=== PATIENT | female | born 1950 | race Caucasian/White ===

== ENCOUNTER 2019-02-25 12:48 | Outpatient (REF) | payer MEDICARE, BC, SELFPAY ==
[2019-02-25 20:18] LABS: ALT 37 U/L (12-78); AST 27 U/L (15-37); Albumin 4.2 g/dL (3.4-5.0); Alkaline Phosphatase 108 U/L (46-116); Anion Gap 11.4 mmol/L (3-11); BUN 13 mg/dL (7-18); Bilirubin, Total 0.6 mg/dL (0.2-1.0); CO2 26.6 mmol/L (21.0-32.0); CREATININE 0.62 mg/dL (0.55-1.02); Calcium 9.2 mg/dL (8.5-10.1); Chloride 101 mmol/L (98-107); Glucose 103 mg/dL (70-100); Potassium 4.2 mmol/L (3.5-5.1); Sodium 139 mmol/L (136-145); Total Protein 7.5 g/dL (6.4-8.2)
[2019-02-25 20:41] LABS: Cholesterol 256 mg/dL (50-200); HDL Cholesterol 108 mg/dL (40-60); LDL CHOLESTEROL 121 mg/dL (<100); Triglyceride 99 mg/dL (30-150)
[2019-02-26 06:13] LABS: Vitamin D 25 Total 31.1 ng/ml (30-100)
== END 2019-02-25 13:08 ==
LOC: NCHCN 12:48
PROVIDERS: PCP Nurse Practitioner; Visit Provider Nurse Practitioner
DX: E55.9 Vitamin D deficiency, unspecified (principal); E78.89 Other lipoprotein metabolism disorders; R73.09 Other abnormal glucose
CPT/HCPCS: 80053; 80061; 82306; 83721

== ENCOUNTER 2019-03-09 00:21 | Outpatient (CLI) | payer MEDICARE, BC, SELFPAY ==
--- NOTE | 2019-03-09 11:48 | DI.MAMMO_ITS ---
SYMPTOM/DIAGNOSIS: SCREENING, Z12.39 MAMMOGRAMS: Mammograms were interpreted according to the usual protocol including computer analysis with CAD system, tomosynthesis and C view imaging. Comparison is made with exams from [id number]. The breasts are composed of fatty density tissue, breast density, Category A. No suspicious masses or suspicious microcalcifications are seen. There has been no significant change. IMPRESSION: Category 1, negative mammogram. Yearly screening mammography is recommended. [facility] ASSESSMENT OF FINDINGS: Negative. Category 1. Patient will receive a letter notifying them of these results. BI-RAD category A. The breasts are almost entirely fatty.
== END 2019-03-09 00:41 ==
PROVIDERS: PCP Nurse Practitioner; Visit Provider Nurse Practitioner
DX: Z12.31 Encounter for screening mammogram for malignant neoplasm of breast (principal)
CPT/HCPCS: 77063; 77067

== ENCOUNTER 2021-12-19 00:25 | Outpatient (CLI) | payer MEDICARE, BC, SELFPAY ==
--- NOTE | 2021-12-19 | DI.MAMMO_ITS ---
Exam(s) MAMMO SCREENING EXAM: MAMMO SCREENING CLINICAL HISTORY: SCREENING, Z12.39 TECHNIQUE: Bilateral full field digital CC and MLO mammographic images were obtained with 3D tomosyn thesis and utilizing computer aided detection (CAD). COMPARISON: Available for comparison. FINDINGS: Masses/Architectural Distortion: None seen. Microcalcifications: No suspicious pleomorphic-type are seen. Skin Thickening/Nipple Retraction: None. IMPRESSION: 1. No significant interval change with no specific features of malignancy noted. 2. Unless there is more urgent need, screening mammography is recommended, as per [employer] guidelines. BI-RADS Category 1 - Negative Breast Density - Category B - Scattered areas of fibroglandular density Breast density category C or D implies that the patient has dense breast tissue. Dense breast tissue is very common and is not abnormal but dense breast tissue can make it harder to find cancer on a ma mmogram. Also, dense breast tissue may increase their breast cancer risk. This information about the result of the mammogram report was provided to the patient to raise their awareness. Use this report when you speak with the patient about their risks for breast cancer, which includes their family hist ory. At that time, you may recommend for more screening tests (Ultrasound or MRI) as they might be us eful based on their risk. A negative radiographic report should not delay biopsy if a dominant or clinically suspicious mass is present. Up to ten percent of cancers are not identified on mammography. A negative report may reinforce clinical impression. Adenosis and dense breasts may obscure an underlying neoplasm. False positive reports average 6 to 10%. Patient will receive a letter notifying them of these results.
== END 2021-12-19 00:45 ==
PROVIDERS: PCP Nurse Practitioner; Visit Provider Nurse Practitioner
DX: Z12.31 Encounter for screening mammogram for malignant neoplasm of breast (principal)
CPT/HCPCS: 77063; 77067

== ENCOUNTER 2023-10-01 13:07 | Emergency (ER) | payer MEDICARE, BC, SELFPAY ==
[2023-10-01 12:59] VITALS: BP 183/83; PULSE 76; RESP 18; TEMP 36.4; O2SAT 98
--- NOTE | 2023-10-01 13:30 | DI.RAD_ITS ---
Exam(s) XR LUMBAR SPINE COMPLETE EXAM: XR LUMBAR SPINE COMPLETE CLINICAL HISTORY: fall pain. TECHNIQUE: 2D digital imaging was performed. Five views. COMPARISON: DX DEXA BONE DENSITY WITH NEGRO from 09/20/2015 FINDINGS: BONES: No fracture or destructive lesion. Mild loss of height of the superior endplate of T12. Degen erative changes of the facet joints of the lower lumbar spine. Known slight degenerative spondylolis thesis at L4-5. DISKS: Intervertebral disc spaces are maintained. ALIGNMENT: Lumbar spinal alignment is within normal limits. SOFT TISSUE: Normal. IMPRESSION: Minimal T12 compression fracture, likely old. DATA REPOSITORY: RADIATION DOSE DELIVERED:
[2023-10-01] MEDS: oxyCODONE 5 mg/Acetaminophen 325 mg TAB 1 TAB PO (13:43)
[2023-10-01] MEDS: Lidocaine 5% Patch 2 PATCH TP (13:43)
--- NOTE | 2023-10-01 14:38 | ED.GENADUL_ITS ---
Discharge Plan Disposition Patient Disposition: Home Condition: Stable Discharge Details Clinical Impression: Contusion of hand, Back pain, Fall Primary Care Provider: Cori Diamond ED Provider: Desire Escalona Home Meds and New Rx's Prescriptions: New lidocaine [Lidoderm] 5 % adhesive patch,medicated 2 patch topical DAILY Qty: 30 0RF Rx Instructions: leave on most painful area for up to 12 hrs oxycodone-acetaminophen [Percocet] 5-325 mg tablet 1 tab PO TID PRNQty: 7 0RF cyclobenzaprine 5 mg tablet 5 mg PO QHS PRNQty: 7 0RF No Action cholecalciferol (vitamin D3) [Vitamin D3] 2,000 UNIT capsule 2,000 unit PO DAILY calcium carbonate-vitamin D3 [Caltrate with Vitamin D3] 1 EACH tablet 1 ea PO DAILY ibuprofen [Advil] 200 MG tablet 200 mg PO PRN Discharge Instructions Instructions: Contusion in Adults (ED), Back Pain (ED) Discharge Data Discharge Physician: Desire Escalona Medical Decision Making 73-year-old female presents for evaluation after mechanical fall at home. She does have lower back discomfort. At time my evaluation she is neurologically intact. Lidoderm patches were placed. She is given a dose of Percocet for pain. X-ray negative for acute fracture. Patient will be treated symptomatically. Patient has no saddle anesthesia, no loss of bowel or bladder control. Patient's history and physical exam are consistent with musculoskeletal back pain. There are no red flags for cauda equina syndrome or infection. No radicular symptoms. We will treat with muscle relaxants and pain control. Patient is to follow up closely with primary care or return to the ED for any worsening symptoms. HPI General Date/Time Provider Initiated Documentation: 10/01/23 13:21 . HPI Narrative: 73-year-old female presents for evaluation of back pain. Patient states that she got up in the middle the night because she had heartburn. She attempted to go get a Tums when she had a coughing fit and vomited. She then fell landing on her bottom. She has bruising to her hands bilaterally and pain in her lower back bilaterally. She has been able to urinate since the incident. No gross hematuria. She denies hitting her head or losing consciousness. Denies any cervical or thoracic pain. No chest pain or shortness of breath. No abdominal pain. No numbness or tingling in her extremities. No weakness in her 70s. She did take Tylenol Motrin at home without significant relief. She has a history of arthritis in her back. Related Data Home Medications Medication Instructions Recorded Confirmed ibuprofen 200 mg tablet (Advil) 200 mg PO PRN 04/25/15 10/01/23 calcium carbonate 600 mg-vitamin 1 ea PO DAILY 02/08/17 10/01/23 D3 20 mcg (800 unit) tablet (Caltrate with Vitamin D3) cholecalciferol (vitamin D3) 50 2,000 unit PO DAILY 02/08/17 10/01/23 mcg (2,000 unit) capsule (Vitamin D3) cyclobenzaprine 5 mg tablet 5 mg PO QHS PRN #7 tabs 10/01/23 lidocaine 5 % topical patch 2 patch topical DAILY #30 ea 10/01/23 (Lidoderm) oxycodone-acetaminophen 5 mg-325 1 tab PO TID PRN #7 tabs 10/01/23 mg tablet (Percocet) Previous Rx's Medication Instructions Recorded cyclobenzaprine 5 mg tablet 5 mg PO QHS PRN #7 tabs 10/01/23 lidocaine 5 % topical patch 2 patch topical DAILY #30 ea 10/01/23 (Lidoderm) oxycodone-acetaminophen 5 mg-325 1 tab PO TID PRN #7 tabs 10/01/23 mg tablet (Percocet) Allergies Allergy/AdvReac Type Severity Reaction Status Date / Time Penicillins Allergy Unknown Unverified 10/01/23 13:06 alendronate sodium AdvReac Severe Skin Rash Unverified 10/01/23 13:06 [From Fosamax] General Stated Complaint: Nk/Back Pain BETH: 4 Review of Systems Narrative: Remainder of review of systems otherwise negative separate as on the HPI x5. PFSH All Active Problems (Updated 10/01/23 @ 15:21 by Desire Escalona MD) Fall (Acute) Back pain (Acute) Contusion of hand (Acute) H/O melanoma excision (Chronic) H/O surgical procedure (Chronic) a. right THR 05/04/2015 b. left THR c. right wrist ORIF d. excision of melanoma e. colonoscopy History of arthroplasty of right hip (Acute 05/04/15) Osteoarthritis of right hip (Acute 05/04/15) Medical History Osteopenia pt reports previous DEXA scan dx. Takes Vit D and has adequate dietary Ca. 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 Surgical History Total replacement of hip (05/30/11) LEFT SIDE DR BENAVIDES Total replacement of hip (05/04/15) RIGHT SIDE DR BENAVIDES 05/04/15 Colonoscopy - IV Sedation (02/25/17) Social History Smoking/Tobacco Use Status: Never Smoking risk assessment performed?: Yes Alcohol Intake: current Alcohol Intake frequency: 0-2 drinks per day Alcohol type: wine Drug use: Occasionally Substance use type: marijuana Exam Narrative Exam Narrative: General: non-toxic, no respiratory distress, comfortable HEENT: normocephalic, atraumatic, lids and lashes normal, PERRL, EOMI, anicteric sclera, no conjunctival injection, moist oral mucosa Neck: No vertebral tenderness Card: regular rate and rhythm, S1S2, no murmurs, rubs, or gallops Lungs: good air entry, clear to auscultation bilaterally. no wheezes, rales, rhonchi, or retractions Abd: soft, non-tender, non-distended, normal bowel sounds, no rebound or guarding, no peritoneal signs Musculoskeletal: Bruising to hands bilaterally, no pain to palpation over metacarpals, able to fully range fingers and wrist, 2+ radial pulses bilaterally, pelvis stable, full range of motion of arms and legs, no tenderness to palpation. no clubbing, cyanosis, or edema Back exam: + Bilateral lumbar sacral paraspinal tenderness, no mid-line tenderness, normal strength & sensation, negative SLR's, DTR's 2+ bilaterally Neurologic: GCS 15, cranial 2 through 12 intact, speech normal, appropriate for age, strength normal Psych: alert and oriented Skin: As above, otherwise no petechiae, no lesions, warm and dry Course Vital Signs Vital signs: Vital Signs Temperature 36.4 C L 10/01/23 12:59 Pulse 76 10/01/23 12:59 Respiratory Rate 18 10/01/23 12:59 Blood Pressure 183/83 H 10/01/23 12:59 Pulse Oximetry 98 10/01/23 12:59 Temperature 36.4 C L 10/01/23 12:59 Temperature Source Skin 10/01/23 12:59 Pulse 76 10/01/23 12:59 Respiratory Rate 18 10/01/23 12:59 Respiratory Effort Normal 10/01/23 13:05 Blood Pressure 183/83 H 10/01/23 12:59 Blood Pressure Position Sitting 10/01/23 12:59 Pulse Oximetry 98 10/01/23 12:59 Oxygen Delivery Method Room Air 10/01/23 12:59 Oxygen Flow Rate 0 10/01/23 12:59 Pain Level 3 10/01/23 12:59 Comment Movement makes pain go to a 10 10/01/23 12:59
== END 2023-10-01 15:53 | disposition home or self-care (01) ==
PROVIDERS: Emergency Provider Emergency Medicine Emergency Medical Services; PCP Nurse Practitioner
DX: M54.50 Low back pain, unspecified (principal); S60.222A Contusion of left hand, initial encounter; S60.221A Contusion of right hand, initial encounter; W18.39XA Other fall on same level, initial encounter; Y93.01 Activity, walking, marching and hiking; Y92.018 Other place in single-family (private) house as the place of occurrence of the external cause
CPT/HCPCS: 99283; 72110

== ENCOUNTER → 2023-11-26 02:06 | Outpatient (CLI) | payer MEDICARE, BC, SELFPAY ==
--- NOTE | 2023-11-26 12:35 | DI.MAMMO_ITS ---
Exam(s) MAMMO SCREENING EXAM: MAMMO SCREENING CLINICAL HISTORY: SCREENING, Z12.39. TECHNIQUE: Bilateral full field digital CC and MLO mammographic images were obtained with 3D tomosyn thesis and utilizing computer aided detection (CAD). COMPARISON: Prior mammograms were reviewed. FINDINGS: There has been no significant change in the appearance and distribution of the fibroglandular tissue. There are no CAD designations. There are no new spiculated masses nor malignant appearing microcalcification groups. There is no significant architectural distortion nor skin thickening-retraction. IMPRESSION: No radiographic evidence of malignancy. BI-RADS Category 1 - Negative Breast Density - Category B - Scattered areas of fibroglandular density Breast density Category C or D implies that the patient has dense breast tissue. Dense breast tissue can make it harder to find cancer on a mammogram. Dense breast tissue is also associated with an incr eased risk of breast cancer. This information about the result of the mammogram report was provided to the patient to raise their awareness. Use this report when you speak with the patient about their risks for breast cancer, which includes their family history. At that time, you may recommend additional screening tests (Ultrasoun d or MRI) as these tests may add significant information. A negative radiographic report should not delay biopsy if a dominant or clinically suspicious mass is present. Up to ten percent of cancers are not identified on mammography. A negative report may reinforce clinical impression. Adenosis and dense breasts may obscure an underlying neoplasm. False positive reports average 6 to 10%. Patient will receive a letter notifying them of these results.
== END ==
PROVIDERS: PCP Nurse Practitioner Family; Visit Provider Nurse Practitioner Family
DX: Z12.31 Encounter for screening mammogram for malignant neoplasm of breast (principal)
CPT/HCPCS: 77063; 77067

== ENCOUNTER 2025-09-28 13:14 | Emergency (ER) | payer MEDICARE, BC, SELFPAY ==
[2025-09-28 13:16] VITALS: BP 171/77; PULSE 112; RESP 18; TEMP 37; O2SAT 95
--- NOTE | 2025-09-28 14:36 | DI.RAD_ITS ---
Exam(s) XR SACRUM COCCYX XR HIP RT COMPLETE AP PELVIS EXAM: XR HIP RT COMPLETE AP PELVIS CLINICAL HISTORY: fall; R hip pain. TECHNIQUE: 2D digital imaging was performed. Three views of the sacrum and coccyx. AP pelvis and lateral view of the right hip. COMPARISON: CR PELVIS AP from 08/15/2015 CR XR LUMBAR SPINE COMPLETE from 10/01/2023 CR XR SACRUM COCCYX from 09/28/2025 FINDINGS: BONES: There are fractures of the right superior and inferior pubic rami, acute versus subacute. There is mild displacement. There is no evidence of hip fracture. No sacral fracture is identified. There are bilateral hip prostheses which are unremarkable. No bony destructive lesion is seen. JOINTS: No dislocation present. Bilateral hip prostheses. The SI joints and pubic symphysis show mild degenerative changes. SOFT TISSUE: Normal. IMPRESSION: Mildly displaced fractures of the right superior and inferior pubic rami. No sacral fractures are visualized. DATA REPOSITORY: RADIATION DOSE DELIVERED:
--- NOTE | 2025-09-28 15:04 | W.ED.GENAD ---
Discharge Plan Disposition Patient Disposition: Home Condition: Stable Discharge Details Clinical Impression: Multiple closed stable fractures of ramus of right pubis Primary Care Provider: SYDNIE SHAH ED Provider: Noble Price Home Meds and New Rx's Prescriptions: Continued cholecalciferol (vitamin D3) [Vitamin D3] 2,000 UNIT capsule 2,000 unit PO DAILY calcium carbonate-vitamin D3 [Caltrate with Vitamin D3] 1 EACH tablet 1 ea PO DAILY ibuprofen [Advil] 200 MG tablet 200 mg PO PRN lidocaine [Lidoderm] 5 % adhesive patch,medicated 2 patch topical DAILY Qty: 30 0RF Rx Instructions: leave on most painful area for up to 12 hrs magnesium 250 mg tablet 250 mg PO QHS Discharge Instructions Instructions: Pelvic fracture Additional Instructions: You were seen in the emergency department for your right sided superior and inferior rami fractures of your pelvis, please use the walker at home for ambulation, I have ordered you home health services, evaluate your needs, please take 1000 mg of Tylenol every 8 hours, take 400 mg of ibuprofen every 6 hours, use the provided oxycodone for breakthrough pain until you can be seen by orthopedics, use a stool softener or laxative for any long-term opiate use. Ortho practice is aware of your images and will contact you for follow-up. Stand Alone Forms: Portal Information Referrals: SYDNIE SHAH, [employer]GRAM[employer]ER [Primary Care Provider, Medicine] Bob Davison MD [ [facility] STAFF PHYSICIAN, Orthopaedic Surgical] Discharge Data Discharge Date/Time-TO BE ENTERED AT DEPARTURE: 09/28/25 17:48 HPI General Date/Time Provider Initiated Documentation: 09/28/25 13:22. HPI Narrative: 75-year-old female presents by POV/ambulating with her son after a fall at home in her yard chasing her cat around, she has right buttock pain as well as hip and lower back pain, she rates this pain as a deep aching sharp pain, of a severe nature, patient has ambulated since the incident with significant pain, has not taken any [id number] analgesics for palliation, pain is provoked by weightbearing. She has previous bilateral total hip arthroplasties. Patient is not anticoagulated Related Data Home Medications Medication Instructions Recorded Confirmed ibuprofen 200 mg tablet (Advil) 200 mg PO PRN 04/25/15 09/28/25 calcium 600 mg (as 1 ea PO DAILY 02/08/17 09/28/25 carbonate)-vitamin D3 20 mcg (800 unit) tablet (Caltrate with Vitamin D3) cholecalciferol (vitamin D3) 50 2,000 unit PO DAILY 02/08/17 09/28/25 mcg (2,000 unit) capsule (Vitamin D3) lidocaine 5 % topical patch 2 patch topical DAILY #30 ea 10/01/23 09/28/25 (Lidoderm) magnesium 250 mg tablet 250 mg PO QHS 09/28/25 09/28/25 Previous Rx's Medication Instructions Recorded lidocaine 5 % topical patch 2 patch topical DAILY #30 ea 10/01/23 (Lidoderm) Allergies Allergy/AdvReac Type Severity Reaction Status Date / Time Penicillins Allergy Unknown Anaphylaxis Unverified 09/28/25 13:22 alendronate sodium (From AdvReac Severe Skin Rash Unverified 09/28/25 13:22 Fosamax) General Stated Complaint: Orthopedic BETH: 3 Review of Systems All systems reviewed & are unremarkable except as noted in HPI and below Exam Narrative Exam Narrative: GENERAL APPEARANCE: Well-nourished, non-toxic, awake and alert, atraumatic, no acute distress. SKIN: Warm, pink, dry, intact, without rashes/lesions/ulcerations. HEAD: Normocephalic, atraumatic, normal hair distribution for gender/age. EYES: Normal conjunctiva, no exudates on lids/lashes. ENT: Nares patent, no circumoral cyanosis, no facial swelling NECK: Supple, trachea midline, painless cervical ROM. LUNGS/CHEST: Lungs CTA bilaterally, non-labored respirations, normal A/P diameter, symmetrical expansion, no chest wall deformity HEART (CV/PV): Regular rate and rhythm without murmur, no peripheral edema, no JVD. ABDOMEN: Soft, non-distended, no guarding. MSK: Normal ROM, no swelling/deformity to bilateral UEs or LEs, moving all extremities without weakness, no cyanosis, spine midline without tenderness, normal curvature. NEURO: Mental Status AAOx4 - alert to person, place, time, events No facial droop, no forehead involvement. Motor: No focal weakness - strength 5/5 in bilateral UEs and LEs, proximal and distal, symmetric. Sensory: sensation intact to light touch globally. Gait normal: patient ambulated without ataxia into ED room. PSYCH: euthymic, cooperative, pleasant, appropriate speech Course Vital Signs Vital signs: Vital Signs Temperature 37 C 09/28/25 13:16 Pulse 112 H 09/28/25 13:16 Respiratory Rate 18 09/28/25 13:16 Blood Pressure 171/77 H 09/28/25 13:16 Pulse Oximetry 95 09/28/25 13:16 Temperature 37 C 09/28/25 13:16 Temperature Source Temporal Artery Scan 09/28/25 13:16 Pulse 112 H 09/28/25 13:16 Respiratory Rate 18 09/28/25 13:16 Blood Pressure 171/77 H 09/28/25 13:16 Pulse Oximetry 95 09/28/25 13:16 Pain Level 8 09/28/25 13:16 Medical Decision Making This dictation utilizes [id number] dictation software and may contain unedited grammatical errors. 75-year-old female presents by POV/ambulating with her son after a fall at home in her yard chasing her cat around, she has right buttock pain as well as hip and lower back pain, she rates this pain as a deep aching sharp pain, of a severe nature, patient has ambulated since the incident with significant pain, has not taken any [id number] analgesics for palliation, pain is provoked by weightbearing. She has previous bilateral total hip arthroplasties. Patients' medical history: Osteopenia. Family and social history: Noncontributory, lives independently. Pertinent exam findings / vital signs include mild tenderness to the right side of the sacrum, most focal tenderness within the buttock itself and not at the acetabular joint, weakness of right lower extremity due to pain, neurovascularly intact distal to right hip, benign abdomen without rigidity or ecchymosis. Differential / pathologies of concern include fracture, hematoma, contusion. Diagnostic studies of: - XR R hip with AP pelvis, XR sacrum and coccyx-shows mildly displaced superior and inferior right rami fracture of pelvis. Interventions of: - Tylenol and ibuprofen, consulted with orthopedics on-call Dr. Davison -Home with walker versus procedural intervention. ED Course/Assessment/Plan: 75-year-old female presents with right sided pelvic rami fractures after a fall chasing her cat around, she has provide been given Tylenol and ibuprofen here, awaiting orthopedic consultation at time of signout to Shama Puga PA-C. Dr. Davison did confirm weightbearing as tolerated with walker and he will follow-up with the patient as well as previously placed in my disposition note with instructions to discharge with confirmation of this plan. Findings not consistent with neurovascular compromise. Disposition of multiple close stable fractures of ramus of right pubis. Patient verbalized understanding of the plan and return to ED criteria and engaged in shared decision making. Medical Records Medical records reviewed: Yes I reviewed the patient's medical records. Imaging Data Radiologic Study: Attestation: I personally reviewed and interpreted this imaging study as follows: Imaging: X-Ray Radiologist's impression: EXAM: XR HIP RT COMPLETE AP PELVIS CLINICAL HISTORY: fall; R hip pain. TECHNIQUE: 2D digital imaging was performed. Three views of the sacrum and coccyx. AP pelvis and lateral view of the right hip. COMPARISON: CR PELVIS AP from 08/15/2015 CR XR LUMBAR SPINE COMPLETE from 10/01/2023 CR XR SACRUM COCCYX from 09/28/2025 FINDINGS: BONES: There are fractures of the right superior and inferior pubic rami, acute versus subacute. There is mild displacement. There is no evidence of hip fracture. No sacral fracture is identified. There are bilateral hip prostheses which are unremarkable. No bony destructive lesion is seen. JOINTS: No dislocation present. Bilateral hip prostheses. The SI joints and pubic symphysis show mild degenerative changes. SOFT TISSUE: Normal. IMPRESSION: Mildly displaced fractures of the right superior and inferior pubic rami. No sacral fractures are visualized. PFSH All Active Problems (Updated 09/28/25 @ 15:24 by MARIO Salcedo) Multiple closed stable fractures of ramus of right pubis (Acute) H/O melanoma excision (Chronic) H/O surgical procedure (Chronic) a. right THR 05/04/2015 b. left THR c. right wrist ORIF d. excision of melanoma e. colonoscopy History of arthroplasty of right hip (Acute 05/04/15) Osteoarthritis of right hip (Acute 05/04/15) Medical History Osteopenia pt reports previous DEXA scan dx. Takes Vit D and has adequate dietary Ca. 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
== END 2025-09-28 17:48 | disposition home or self-care (01) ==
PROVIDERS: Emergency Provider Physician Assistant; PCP Nurse Practitioner Family
DX: S32.591A Other specified fracture of right pubis, initial encounter for closed fracture (principal); X58.XXXA Exposure to other specified factors, initial encounter
CPT/HCPCS: 99284 ×2; 36416; 82962; 72220; 73502